=== PATIENT | female | born 1985 | race American Indian/Alaskan Native ===

== ENCOUNTER 2018-03-15 07:17 | Emergency (ER) | payer SELFPAY ==
[2018-03-15 07:25] VITALS: BP 133/74
--- NOTE | 2018-03-15 08:08 | Emergency Department Report ---
ED Abdominal Pain HPI - General Chief Complaint: Abdominal Pain Stated Complaint: ABD PAIN Time Seen by Provider: 03/15/18 07:30 Source: patient Mode of arrival: Ambulatory Limitations: No Limitations - History of Present Illness Initial Comments: This is a 32-year-old female with no prior medical history who presents to ED for right upper quadrant abdominal pain 2 months. Patient describes pain as a burning type pain. Patient states that pain has been getting increasingly worse. She states the abdominal pain is localized to her right upper quadrant area with no radiation elsewhere. Patient also admits to mild nausea vomiting. The vomiting episode of 2 yesterday. She denies dysuria, vaginal discharge, vaginal bleeding, diarrhea, constipation patient is states that her dementia cycles are normal with the last measure cycle February 10 2018 - Related Data Previous Rx's Medication Instructions Recorded Last Taken Type Amoxicillin 500 mg PO QID #40 capsule 01/18/18 Unknown Rx Chlorhexidine Mouthwash [Peridex] 15 ml MM BID #473 bottle 01/18/18 Unknown Rx Lidocaine Viscous 2% 5 ml MM Q3H PRN #120 udc 01/18/18 Unknown Rx hydrOXYzine HCL [Atarax] 25 mg PO Q6HR PRN #20 tablet 01/18/18 Unknown Rx predniSONE [Deltasone] 50 mg PO QDAY #5 tab 01/18/18 Unknown Rx Acetaminophen [Tylenol Extra 500 mg PO Q6H #30 tablet 03/15/18 Unknown Rx Strength] Dicyclomine [Bentyl] 10 mg PO BID #20 capsule 03/15/18 Unknown Rx Ondansetron (Nf) [Zofran TAB] 8 mg PO Q8HR PRN #30 tablet 03/15/18 Unknown Rx Allergies Allergy/AdvReac Type Severity Reaction Status Date / Time No Known Allergies Allergy Verified 03/15/18 07:21 ED Review of Systems ROS: Stated complaint: ABD PAIN Other details as noted in HPI Comment: All other systems reviewed and negative ED Past Medical Hx - Past Medical History Previous Medical History?: No - Surgical History Past Surgical History?: Yes Additional Surgical History: x2. D&C x1 - Social History Smoking Status: Current Every Day Smoker Substance Use Type: Alcohol - Medications Home Medications: Home Medications Medication Instructions Recorded Confirmed Last Taken Type Amoxicillin 500 mg PO QID #40 capsule 01/18/18 Unknown Rx Chlorhexidine Mouthwash [Peridex] 15 ml MM BID #473 bottle 01/18/18 Unknown Rx Lidocaine Viscous 2% 5 ml MM Q3H PRN #120 udc 01/18/18 Unknown Rx hydrOXYzine HCL [Atarax] 25 mg PO Q6HR PRN #20 tablet 01/18/18 Unknown Rx predniSONE [Deltasone] 50 mg PO QDAY #5 tab 01/18/18 Unknown Rx Acetaminophen [Tylenol Extra 500 mg PO Q6H #30 tablet 03/15/18 Unknown Rx Strength] Dicyclomine [Bentyl] 10 mg PO BID #20 capsule 03/15/18 Unknown Rx Ondansetron (Nf) [Zofran TAB] 8 mg PO Q8HR PRN #30 tablet 03/15/18 Unknown Rx ED Physical Exam - General Limitations: No Limitations General appearance: alert, in no apparent distress - Head Head exam: Present: atraumatic, normocephalic - Eye Eye exam: Present: normal appearance - ENT ENT exam: Present: mucous membranes moist - Neck Neck exam: Present: normal inspection - Respiratory Respiratory exam: Present: normal lung sounds bilaterally. Absent: respiratory distress - Cardiovascular Cardiovascular Exam: Present: regular rate, normal rhythm. Absent: systolic murmur, diastolic murmur, rubs, gallop - GI/Abdominal GI/Abdominal exam: Present: soft, normal bowel sounds. Absent: distended, tenderness, guarding, rebound, rigid, mass, bruit - Extremities Exam Extremities exam: Present: normal inspection, full ROM - Back Exam Back exam: Present: normal inspection - Neurological Exam Neurological exam: Present: alert, oriented X3 - Psychiatric Psychiatric exam: Present: normal affect, normal mood - Skin Skin exam: Present: warm, dry, intact, normal color. Absent: rash ED Course Vital Signs 03/15/18 07:21 Temperature 97.7 F Pulse Rate 69 Respiratory 16 Rate Blood Pressure 133/74 O2 Sat by Pulse 95 Oximetry ED Medical Decision Making - Lab Data Result diagrams: 03/15/18 08:35 03/15/18 08:31 - Radiology Data Radiology results: report reviewed, image reviewed ULTRASOUND ABDOMEN COMPLETE: TECHNIQUE: Transabdominal ultrasound with color Doppler interrogation. HISTORY: Right upper quadrant pain. COMPARISON: none. FINDINGS: LIVER: Normal. BILIARY SYSTEM: There are multiple small and large shadowing gallstones within the gallbladder. No evidence for abnormal distention, wall thickening or surrounding fluid. The CBD measures 3.7 mm. PANCREAS: Normal. SPLEEN: Normal. KIDNEYS: Normal. AORTA/IVC: Normal. ASCITES: None. IMPRESSION: Cholelithiasis. No convincing findings of acute cholecystitis at this time. Transcribed By: TTR Dictated By: JOSE YAP JR, MD Electronically Authenticated By: JOSE YAP JR, MD Signed Date/Time: 03/15/18 0828 - Medical Decision Making 32-year-old female presents with cholelithiasis causing abdominal pain. Urinalysis, urine test, abdominal ultrasound ordered. Urinalysis shows no acute findings, negative test, abdominal ultrasound shows Discussed findings with the patient. Discussed with the patient since this may increase to get worse. 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 Discussed with the patient in intensive fever she pain or any signs or symptoms return to ED immediately. Critical care attestation.: If time is entered above; I have spent that time in minutes in the direct care of this critically ill patient, excluding procedure time. ED Disposition Clinical Impression: Cholelithiases Qualifiers: Cholelithiasis location: gallbladder Cholecystitis presence: without ch olecystitis Biliary obstruction: without biliary obstruction Qualified Code(s): K80.20 - Calculus of gallbladder without cholecystitis without obstruction Disposition: - TO HOME OR SELFCARE Is pt being admited?: No Does the pt Need Aspirin: No Condition: Stable Instructions: Cholelithiasis (ED), Biliary Colic (ED) Additional Instructions: Make sure to follow up with the primary care physician as discussed. Take all your medications as you've been prescribed. If you have any worsening symptoms or develop new symptoms please return to ED immediately. Prescriptions: Acetaminophen [Tylenol Extra Strength] 500 mg PO Q6H #30 tablet Dicyclomine [Bentyl] 10 mg PO BID #20 capsule Ondansetron (Nf) [Zofran TAB] 8 mg PO Q8HR PRN #30 tablet PRN Reason: Nausea Referrals: PRIMARY CARE, [Primary Care Provider] - 3-5 Days [facility] [place]] - 3-5 Days [facility] [Outside] - 3-5 Days [facility] [Outside] - 3-5 Days Forms: Accompanied Note, Work/School Release Form(ED) Time of Disposition: 09:37
[2018-03-15 08:10] LABS: Bacteria,Urine 1+ /HPF (Negative); Bilirubin,Urine NEG (Negative); Blood,Urine NEG (Negative); Color,Urine Yellow (Yellow); Mucus,Urine 1+ /HPF; Protein,Urine <15 mg/dL mg/dL (Negative); Urobilinogen,Urine < 2.0 mg/dL (<2.0)
[2018-03-15 08:11] LABS: HCG Qualitative,Urine Negative (Negative)
--- NOTE | 2018-03-15 08:32 | Ultrasound Report ---
ULTRASOUND ABDOMEN COMPLETE: TECHNIQUE: Transabdominal ultrasound with color Doppler interrogation. HISTORY: Right upper quadrant pain. COMPARISON: none. FINDINGS: LIVER: Normal. BILIARY SYSTEM: There are multiple small and large shadowing gallstones within the gallbladder. No evidence for abnormal distention, wall thickening or surrounding fluid. The CBD measures 3.7 mm. PANCREAS: Normal. SPLEEN: Normal. KIDNEYS: Normal. AORTA/IVC: Normal. ASCITES: None. IMPRESSION: Cholelithiasis. No convincing findings of acute cholecystitis at this time.
[2018-03-15 08:43] LABS: Hemoglobin 11.9 gm/dl (10.1-14.3); Mean Corpuscular HGB Conc 33 % (30-34); Mean Corpuscular Volume 86 fl (79-97); Platelet Count 217 K/mm3 (140-440); Red Blood Count 4.22 M/mm3 (3.65-5.03); Red Cell Distribution Width 14.6 % (13.2-15.2)
[2018-03-15 09:14] LABS: Alanine Aminotransferase 16 units/L (7-56); Albumin 3.7 g/dL (3.9-5); BUN/Creatinine Ratio 14; Blood Urea Nitrogen 10 mg/dL (7-17); Calcium 8.8 mg/dL (8.4-10.2); Hemolysis Index 8
== END 2018-03-15 09:52 | disposition home or self-care (01) ==
LOC: ED 07:17
DX: K80.20 Calculus of gallbladder without cholecystitis without obstruction (principal)
CPT/HCPCS: 36415; 76700; 80053; 81001; 81025; 85027